=== PATIENT | female | born 1940 | race African-American/Black ===

== ENCOUNTER 2020-06-19 10:49 | Inpatient (IN) | payer MEDICARE, OTHER ==
[~2020-06-19] VITALS: Ht 160 cm; Wt 54.9 kg
[2020-06-19 12:30] LABS: BASOPHILS % 0.4 % (0.0-2.0); EOSINOPHILS % 0.8 % (0.0-5.0); HEMATOCRIT. 38.7 % (36.0-48.0); HEMOGLOBIN. 12.3 g/dL (12.0-16.0); LYMPHOCYTES % 19.3 % (20.0-50.0); MEAN CORPUSCULAR HEMOGLOBIN 32.4 pg (28.0-32.0); MEAN CORPUSCULAR VOLUME 101.8 fL (81.0-99.0); MEAN PLATELET VOLUME 9.1 fl (7.4-10.4); MONOCYTES % 3.7 % (2.0-8.0); NEUTROPHILS % 75.8 % (40.0-76.0); PLATELET 269 x1000/uL (130-400); RED CELL DISTRIBUTION WIDTH 16.9 % (11.6-14.6)
[2020-06-19 12:43] LABS: CHLORIDE 136 mEq/L (98-107)
[2020-06-19 12:50] LABS: ETHANOL BLOOD < 10 mg/dL
[2020-06-19] MEDS ORDERED: NICARDIPINE 100 MG in SODIUM CHLORIDE 0.9% 60 ML IV PRN (14:00)
[2020-06-19] MEDS ORDERED: MORPHINE SULFATE 2 MG/ML CPJ (NOT FOR IM USE) IV PRN (14:00)
[2020-06-19] MEDS ORDERED: SODIUM CHLORIDE 0.9% 1,000 ML IV ONE (15:00)
[2020-06-19] MEDS ORDERED: POTASSIUM CHLORIDE INJ 40 MEQ in DEXT 5% WATER 500 ML IV NR (15:00)
[2020-06-19 15:35] LABS: PROTHROMBIN TIME 10.7 sec (9.6-11.0)
[2020-06-19] MEDS: DEXAMETHASONE 4MG/ML 1ML VIAL IV SCH ×2 (16:15→22:14)
[2020-06-19 16:43] LABS: CLARITY URINE CLEAR (CLEAR); COLOR URINE YELLOW (YELLOW); KETONES URINE NEGATIVE (NEGATIVE); LEUKOCYTE ESTERASE URINE NEGATIVE (NEGATIVE); NITRITE URINE NEGATIVE (NEGATIVE); OCCULT BLOOD URINE NEGATIVE (NEGATIVE); PROTEIN URINE TRACE (NEGATIVE); SPECIFIC GRAVITY URINE 1.017 (1.005-1.030)
[2020-06-19 17:15] LABS: *AMPHETAMINES SCREEN URINE NEGATIVE (NEGATIVE); *BARBITURATES SCREEN URINE NEGATIVE (NEGATIVE); *BENZODIAZEPINES SCREEN URINE NEGATIVE (NEGATIVE); *COCAINE SCREEN URINE NEGATIVE (NEGATIVE); METHADONE URINE SCREEN NEGATIVE (NEGATIVE); OPIATES URINE SCREEN NEGATIVE (NEGATIVE)
[2020-06-19 17:16] LABS: CANNABINOID URINE SCREEN NEGATIVE (NEGATIVE); PHENCYCLIDINE URINE SCREEN NEGATIVE (NEGATIVE)
[2020-06-19] MEDS ORDERED: ONDANSETRON HCL 4MG/2ML INJ IV PRN (19:00)
[2020-06-19] MEDS ORDERED: DEXTROSE 5% WATER 1,000 ML IV SCH (19:00)
[2020-06-19] MEDS ORDERED: CEFTRIAXONE 1 G PREMIX 50 ML IV SCH (19:00)
[2020-06-19] MEDS ORDERED: ACETAMINOPHEN 650MG SUPP PR PRN (19:00)
[2020-06-19] MEDS: DEXT 5%/LACTATED RINGERS 1,000 ML IV SCH (19:13)
[2020-06-19] MEDS ORDERED: LEVETIRACETAM 500MG PREMIX 100 ML IV SCH (21:00)
[2020-06-20] VITALS (73 sets, daily range): BP systolic 61–163; BP diastolic 21–143
[2020-06-20] MEDS: DEXT 5%/LACTATED RINGERS 1,000 ML IV SCH ×2 (01:07→23:13)
[2020-06-20] MEDS: DEXAMETHASONE 4MG/ML 1ML VIAL IV SCH ×3 (05:29→21:07)
[2020-06-20 05:32] LABS: HEMATOCRIT. 35.9 % (36.0-48.0); HEMOGLOBIN. 11.6 g/dL (12.0-16.0); MEAN CORPUSCULAR HEMOGLOBIN 32.6 pg (28.0-32.0); MEAN CORPUSCULAR VOLUME 100.9 fL (81.0-99.0); MEAN PLATELET VOLUME 9.4 fl (7.4-10.4); PLATELET 240 x1000/uL (130-400); RED BLOOD CELL COUNT 3.56 mill/uL (4.2-5.4); RED CELL DISTRIBUTION WIDTH 16.7 % (11.6-14.6)
[2020-06-20 05:41] LABS: CHLORIDE 135 mEq/L (98-107)
[2020-06-20 05:51] LABS: CREATINE KINASE 534 IU/L (26-192)
[2020-06-20 05:54] LABS: CREATINE KINASE MB FRACTION 5.7 ng/mL (0.5-3.6)
[2020-06-20] MEDS: FAMOTIDINE 20MG/2ML VIAL IV SCH (09:57)
[2020-06-20] MEDS ORDERED: LORAZEPAM 2MG/ML CPJ IV NR (10:00)
[2020-06-20] MEDS: LEVETIRACETAM 500MG PREMIX 100 ML IV SCH ×2 (11:16→20:34)
[2020-06-20 11:58] LABS: PLATELET ESTIMATE NORMAL
[2020-06-20] MEDS ORDERED: ENALAPRIL 2.5MG/2ML VIAL 2ML IV PRN (16:15)
[2020-06-20] MEDS: CEFTRIAXONE 1,000 MG in DEXTROSE 5% WATER 50 ML IV SCH (17:27)
[2020-06-21] VITALS (66 sets, daily range): BP systolic 78–176; BP diastolic 29–111
[2020-06-21] MEDS: NICARDIPINE 100 MG in SODIUM CHLORIDE 0.9% 60 ML IV PRN ×2 (02:10→02:24)
[2020-06-21] MEDS ORDERED: NICARDIPINE 100 MG in SODIUM CHLORIDE 0.9% 60 ML IV PRN (02:45)
[2020-06-21] MEDS: DEXAMETHASONE 4MG/ML 1ML VIAL IV SCH ×2 (05:01→14:00)
[2020-06-21 05:30] LABS: INR 1.1; PARTIAL THROMBOPLASTIN TIME 29.6 sec (23.4-31.0); PROTHROMBIN TIME 11.1 sec (9.6-11.0)
[2020-06-21 05:32] LABS: HEMATOCRIT. 34.9 % (36.0-48.0); HEMOGLOBIN. 11.4 g/dL (12.0-16.0); MEAN CORPUSCULAR HEMOGLOBIN 32.6 pg (28.0-32.0); MEAN CORPUSCULAR VOLUME 99.9 fL (81.0-99.0); MEAN PLATELET VOLUME 9.3 fl (7.4-10.4); PLATELET 233 x1000/uL (130-400); RED CELL DISTRIBUTION WIDTH 16.8 % (11.6-14.6)
[2020-06-21] MEDS ORDERED: LIDOCAINE HCL 1% 20ML VIAL (Pyxis) INJ ONE (07:00)
[2020-06-21] MEDS: FAMOTIDINE 20MG/2ML VIAL IV SCH (08:43)
[2020-06-21] MEDS: LEVETIRACETAM 500MG PREMIX 100 ML IV SCH ×2 (08:43→20:44)
[2020-06-21 09:49] LABS: PLATELET ESTIMATE NORMAL
[2020-06-21] MEDS ORDERED: KCL 20MEQ/100ML PREMIX 100 ML IV SCH (10:00)
[2020-06-21] MEDS ORDERED: THROMBIN (BOVINE) 5000 UNITS/VIAL TOP ONE ×2 (12:07→12:08)
[2020-06-21] MEDS ORDERED: SODIUM CHLORIDE 0.9% INJ 10ML FLUSH IVF ONE (12:07)
[2020-06-21] MEDS ORDERED: LIDOCAINE HCL/EPINEPHRINE 1%-EPI 1:100,000 20 ML VIAL ONE (12:07)
[2020-06-21] MEDS ORDERED: BACITRACIN 50,000 UNITS/VIAL ONE (12:08)
[2020-06-21] MEDS: DEXT 5%/LACTATED RINGERS 1,000 ML IV SCH (12:29)
[2020-06-21] MEDS ORDERED: NEOSTIGMINE METHYLSULFATE 1MG/ML 10 ML VIAL ONE (13:14)
[2020-06-21] MEDS ORDERED: MIDAZOLAM HCL 2 MG/2 ML VIAL ONE (13:14)
[2020-06-21] MEDS ORDERED: PROPOFOL 200MG/20ML VIAL IV ONE (13:14)
[2020-06-21] MEDS ORDERED: ROCURONIUM BROMIDE 10MG/ML VIAL 5ML IV ONE (13:14)
[2020-06-21] MEDS ORDERED: FENTANYL CITRATE/PF 50MCG/ML 2ML VIAL ONE (13:14)
[2020-06-21] MEDS ORDERED: SUCCINYLCHOLINE CHLORIDE 200MG/10ML IV ONE (13:15)
[2020-06-21] MEDS ORDERED: SODIUM CHLORIDE 0.9% 10ML VIAL ONE (13:15)
[2020-06-21] MEDS ORDERED: ONDANSETRON HCL 4MG/2ML INJ ONE (13:15)
[2020-06-21] MEDS ORDERED: GLYCOPYRROLATE 0.2 MG/ML 2ML VIAL ONE (13:15)
[2020-06-21] MEDS ORDERED: METOCLOPRAMIDE HCL 10MG/2ML VIAL ONE (13:15)
[2020-06-21] MEDS ORDERED: CEFAZOLIN SODIUM 1000MG/VIAL ONE (13:15)
[2020-06-21] MEDS ORDERED: EPHEDRINE SULFATE 50MG/ML VIAL ONE (13:15)
[2020-06-21] MEDS ORDERED: PHENYLEPHRINE HCL 10 MG/ML 1ML (IV VIAL) IV ONE (13:15)
[2020-06-21] MEDS ORDERED: CEFAZOLIN SODIUM 1000MG/VIAL IV SCH (14:00)
[2020-06-21] MEDS ORDERED: LABETALOL HCL 5MG/ML VIAL 20ML IV ONE (14:18)
[2020-06-21] MEDS: CEFTRIAXONE 1,000 MG in DEXTROSE 5% WATER 50 ML IV SCH (17:51)
[2020-06-21] MEDS: CEFAZOLIN 1000MG PREMIX 50 ML IV SCH (21:39)
[2020-06-22] VITALS (100 sets, daily range): BP systolic 100–147; BP diastolic 49–100
[2020-06-22] MEDS: MORPHINE SULFATE 2 MG/ML CPJ (NOT FOR IM USE) IV PRN ×2 (00:45→05:10)
[2020-06-22] MEDS: DEXT 5%/LACTATED RINGERS 1,000 ML IV SCH ×2 (03:06→18:03)
[2020-06-22] MEDS: CEFAZOLIN 1000MG PREMIX 50 ML IV SCH ×3 (05:45→22:09)
[2020-06-22 06:45] LABS: BASOPHILS % 0.1 % (0.0-2.0); EOSINOPHILS % 0.2 % (0.0-5.0); HEMATOCRIT. 34.8 % (36.0-48.0); HEMOGLOBIN. 11.4 g/dL (12.0-16.0); MEAN CORPUSCULAR HEMOGLOBIN 32.4 pg (28.0-32.0); MEAN CORPUSCULAR VOLUME 98.5 fL (81.0-99.0); MEAN PLATELET VOLUME 9.7 fl (7.4-10.4); MONOCYTES % 4.5 % (2.0-8.0); NEUTROPHILS % 85.2 % (40.0-76.0); PLATELET 242 x1000/uL (130-400); RED BLOOD CELL COUNT 3.53 mill/uL (4.2-5.4); RED CELL DISTRIBUTION WIDTH 16.8 % (11.6-14.6)
[2020-06-22] MEDS ORDERED: KCL 20MEQ/100ML PREMIX 100 ML IV ONE ×3 (07:00→12:00)
[2020-06-22] MEDS ORDERED: POTASSIUM CHLORIDE INJ 60 MEQ in DEXT 5% WATER 500 ML IV NR (08:00)
[2020-06-22] MEDS: FAMOTIDINE 20MG/2ML VIAL IV SCH (08:05)
[2020-06-22] MEDS: LEVETIRACETAM 500MG PREMIX 100 ML IV SCH ×2 (08:05→20:44)
[2020-06-22] MEDS: IPRATROPIUM/ALBUTEROL 0.5-3(2.5)MG/3ML NEB NEB PRN (08:50)
[2020-06-22 09:07] LABS: BG BASE EXCESS 0.6 mmol/L (-2.0-2.0); BG CARBOXYHEMOGLOBIN 0.3 % (0.5-1.5); BG FRACTION INSPIRED OXYGEN 40; BG HCO3 ACT 22.7 mmol/L (22.0-26.0); BG METHEMOGLOBIN 0.3 % (0.0-1.5); BG OXYHEMOGLOBIN 98.4 % (94.0-97.0); BG PCO2 29.2 mmHg (35.0-45.0); BG PH 7.509 (7.350-7.450); BG PO2 150.6 mmHg (75.0-100.0); BG SAMPLE SITE LEFT RADIAL; BG TOTAL HEMOGLOBIN 12.4 g/dL (12.0-18.0); BG VENT MODE VENT - AC
[2020-06-22 11:56] LABS: T4 FREE 1.29 ng/dL (0.76-1.46)
[2020-06-22 14:50] LABS: BG BASE EXCESS 0.5 mmol/L (-2.0-2.0); BG CARBOXYHEMOGLOBIN 0.3 % (0.5-1.5); BG DEOXYHEMOGLOBIN 1.5 % (0.0-5.0); BG FRACTION INSPIRED OXYGEN 40; BG HCO3 ACT 23.4 mmol/L (22.0-26.0); BG METHEMOGLOBIN 0.4 % (0.0-1.5); BG OXYGEN SATURATION 98.5 % (92.0-98.5); BG OXYHEMOGLOBIN 97.8 % (94.0-97.0); BG PCO2 32.2 mmHg (35.0-45.0); BG PO2 137.3 mmHg (75.0-100.0); BG SAMPLE SITE LEFT RADIAL; BG TOTAL HEMOGLOBIN 12.2 g/dL (12.0-18.0); BG VENT MODE VENT - AC
[2020-06-22] MEDS: NICARDIPINE 100 MG in SODIUM CHLORIDE 0.9% 60 ML IV PRN (18:03)
[2020-06-22] MEDS: CEFTRIAXONE 1,000 MG in DEXTROSE 5% WATER 50 ML IV SCH (18:04)
[2020-06-22] MEDS ORDERED: KCL 20MEQ/100ML PREMIX 100 ML IV NR (23:30)
[2020-06-23] VITALS (99 sets, daily range): BP systolic 74–152; BP diastolic 33–111
[2020-06-23] MEDS ORDERED: POTASSIUM CHLORIDE INJ 40 MEQ in DEXT 5% WATER 250 ML IV NR ×2
[2020-06-23] MEDS: DEXT 5%/LACTATED RINGERS 1,000 ML IV SCH ×2 (06:01→18:37)
[2020-06-23] MEDS: CEFAZOLIN 1000MG PREMIX 50 ML IV SCH ×3 (06:03→21:36)
[2020-06-23 06:08] LABS: HEMATOCRIT 37.1 % (36.0-48.0); HEMOGLOBIN 12.2 g/dL (12.0-16.0); MEAN CORPUSCULAR HEMOGLOBIN 32.8 pg (28.0-32.0); MEAN CORPUSCULAR VOLUME 99.8 fL (81.0-99.0); PLATELET 203 x1000/uL (130-400); RED BLOOD CELL COUNT 3.72 mill/uL (4.2-5.4); RED CELL DISTRIBUTION WIDTH 16.8 % (11.6-14.6)
[2020-06-23] MEDS: IPRATROPIUM/ALBUTEROL 0.5-3(2.5)MG/3ML NEB NEB PRN ×2 (07:48→15:27)
[2020-06-23 09:09] LABS: BG BASE EXCESS 0.4 mmol/L (-2.0-2.0); BG CARBOXYHEMOGLOBIN 0.3 % (0.5-1.5); BG DEOXYHEMOGLOBIN 0.9 % (0.0-5.0); BG FRACTION INSPIRED OXYGEN 40; BG HCO3 ACT 22.5 mmol/L (22.0-26.0); BG OXYGEN SATURATION 99.1 % (92.0-98.5); BG OXYHEMOGLOBIN 98.8 % (94.0-97.0); BG PCO2 29.5 mmHg (35.0-45.0); BG PO2 181.8 mmHg (75.0-100.0); BG SAMPLE SITE LEFT RADIAL; BG VENT MODE VENT - AC
[2020-06-23] MEDS: LEVETIRACETAM 500MG PREMIX 100 ML IV SCH ×2 (09:58→20:18)
[2020-06-23] MEDS: FAMOTIDINE 20MG/2ML VIAL IV SCH (09:58)
[2020-06-23] MEDS ORDERED: BACITRACIN 50,000 UNITS/VIAL ONE (10:18)
[2020-06-23] MEDS ORDERED: SODIUM CHLORIDE 0.9% INJ 10ML FLUSH IVF ONE (10:18)
[2020-06-23] MEDS ORDERED: LIDOCAINE HCL/EPINEPHRINE 1%-EPI 1:100,000 20 ML VIAL ONE (10:18)
[2020-06-23] MEDS ORDERED: BACITRACIN 15GM TUBE TOP ONE (10:18)
[2020-06-23] MEDS ORDERED: THROMBIN (BOVINE) 5000 UNITS/VIAL TOP ONE (10:18)
[2020-06-23] MEDS ORDERED: LACTATED RINGERS 3,000 ML IV ONE (10:19)
[2020-06-23] MEDS ORDERED: ROCURONIUM BROMIDE 10MG/ML VIAL 5ML IV ONE (10:59)
[2020-06-23] MEDS ORDERED: MIDAZOLAM HCL 2 MG/2 ML VIAL ONE (11:00)
[2020-06-23] MEDS: CEFTRIAXONE 1,000 MG in DEXTROSE 5% WATER 50 ML IV SCH (18:36)
[2020-06-24] VITALS (97 sets, daily range): BP systolic 100–159; BP diastolic 35–110
[2020-06-24 05:02] LABS: BASOPHILS % 0.2 % (0.0-2.0); EOSINOPHILS % 1.1 % (0.0-5.0); HEMATOCRIT. 34.1 % (36.0-48.0); HEMOGLOBIN. 11.5 g/dL (12.0-16.0); LYMPHOCYTES % 15.9 % (20.0-50.0); MEAN CORPUSCULAR VOLUME 98.1 fL (81.0-99.0); MEAN PLATELET VOLUME 9.4 fl (7.4-10.4); MONOCYTES % 4.2 % (2.0-8.0); NEUTROPHILS % 78.6 % (40.0-76.0); PLATELET 178 x1000/uL (130-400); RED BLOOD CELL COUNT 3.47 mill/uL (4.2-5.4); RED CELL DISTRIBUTION WIDTH 16.5 % (11.6-14.6)
[2020-06-24] MEDS: MORPHINE SULFATE 2 MG/ML CPJ (NOT FOR IM USE) IV PRN (05:04)
[2020-06-24 05:09] LABS: CHLORIDE 117 mEq/L (98-107)
[2020-06-24] MEDS: LEVETIRACETAM 500MG PREMIX 100 ML IV SCH ×2 (08:26→21:05)
[2020-06-24] MEDS: DEXT 5%/LACTATED RINGERS 1,000 ML IV SCH ×2 (08:27→21:24)
[2020-06-24] MEDS: CEFAZOLIN 1000MG PREMIX 50 ML IV SCH (08:41)
[2020-06-24] MEDS: FAMOTIDINE 20MG/2ML VIAL IV SCH (08:41)
[2020-06-24] MEDS ORDERED: KCL 20MEQ/100ML PREMIX 100 ML IV SCH (09:00)
[2020-06-24] MEDS: IPRATROPIUM/ALBUTEROL 0.5-3(2.5)MG/3ML NEB NEB PRN (12:30)
[2020-06-24] MEDS ORDERED: POTASSIUM CHLORIDE INJ 40 MEQ in DEXT 5% WATER 250 ML IV NR (13:00)
[2020-06-24] MEDS: NICARDIPINE 100 MG in SODIUM CHLORIDE 0.9% 60 ML IV PRN (13:23)
[2020-06-24] MEDS: CEFTRIAXONE 1,000 MG in DEXTROSE 5% WATER 50 ML IV SCH (17:25)
[2020-06-24] MEDS ORDERED: MAGNESIUM 2 G PREMIX 50 ML IV SCH (22:00)
[2020-06-25] VITALS (103 sets, daily range): BP systolic 82–152; BP diastolic 31–90
[2020-06-25] MEDS: NICARDIPINE 100 MG in SODIUM CHLORIDE 0.9% 60 ML IV PRN (07:55)
[2020-06-25] MEDS: DEXT 5%/LACTATED RINGERS 1,000 ML IV SCH (09:23)
[2020-06-25] MEDS: FAMOTIDINE 20MG/2ML VIAL IV SCH (09:23)
[2020-06-25] MEDS: LEVETIRACETAM 500MG PREMIX 100 ML IV SCH ×2 (09:23→20:42)
[2020-06-25 11:39] LABS: HEMATOCRIT 32.6 % (36.0-48.0); HEMOGLOBIN 10.7 g/dL (12.0-16.0); MEAN CORPUSCULAR HEMOGLOBIN 32.1 pg (28.0-32.0); MEAN CORPUSCULAR VOLUME 97.8 fL (81.0-99.0); PLATELET 176 x1000/uL (130-400); RED BLOOD CELL COUNT 3.34 mill/uL (4.2-5.4); RED CELL DISTRIBUTION WIDTH 16.1 % (11.6-14.6)
[2020-06-25 11:47] LABS: CHLORIDE 113 mEq/L (98-107)
[2020-06-25] MEDS ORDERED: POTASSIUM CHLORIDE 20MEQ TABLET SR PO NR (14:30)
[2020-06-25] MEDS: AMLODIPINE 5MG TABLET PO SCH (14:54)
[2020-06-25] MEDS: HYDRALAZINE HCL 50MG TABLET PO SCH (21:08)
[2020-06-26] VITALS (105 sets, daily range): BP systolic 93–157; BP diastolic 44–111
[2020-06-26] MEDS: DEXT 5%/LACTATED RINGERS 1,000 ML IV SCH ×2 (00:03→14:05)
[2020-06-26] MEDS: NICARDIPINE 100 MG in SODIUM CHLORIDE 0.9% 60 ML IV PRN ×3 (02:36→19:17)
[2020-06-26 05:28] LABS: HEMATOCRIT 34.6 % (36.0-48.0); HEMOGLOBIN 11.2 g/dL (12.0-16.0); MEAN CORPUSCULAR HEMOGLOBIN 32.1 pg (28.0-32.0); PLATELET 177 x1000/uL (130-400); RED CELL DISTRIBUTION WIDTH 16.7 % (11.6-14.6)
[2020-06-26] MEDS: HYDRALAZINE HCL 50MG TABLET PO SCH (05:34)
[2020-06-26 05:47] LABS: CHLORIDE 110 mEq/L (98-107)
[2020-06-26] MEDS: MORPHINE SULFATE 2 MG/ML CPJ (NOT FOR IM USE) IV PRN ×2 (08:09→17:47)
[2020-06-26] MEDS: FAMOTIDINE 20MG/2ML VIAL IV SCH (08:34)
[2020-06-26] MEDS: AMLODIPINE 5MG TABLET PO SCH (08:36)
[2020-06-26] MEDS: LEVETIRACETAM 500MG PREMIX 100 ML IV SCH ×2 (08:38→21:12)
[2020-06-26] MEDS ORDERED: CEFAZOLIN SODIUM 1000MG/VIAL IV SCH (10:00)
[2020-06-26] MEDS: CEFAZOLIN 1000MG PREMIX 50 ML IV SCH ×2 (10:54→17:14)
[2020-06-26] MEDS ORDERED: HYDRALAZINE HCL 100MG TABLET PO SCH (13:30)
[2020-06-26] MEDS ORDERED: METOPROLOL TARTRATE 25MG TABLET PO ONE (13:45)
[2020-06-26] MEDS: HYDRALAZINE HCL 100MG TABLET PO SCH ×2 (13:46→21:13)
[2020-06-26] MEDS ORDERED: HYDRALAZINE HCL 50MG TABLET PO SCH (14:00)
[2020-06-26 16:52] LABS: BG CARBOXYHEMOGLOBIN 0.3 % (0.5-1.5); BG DEOXYHEMOGLOBIN 6.7 % (0.0-5.0); BG FRACTION INSPIRED OXYGEN 30; BG HCO3 ACT 25.3 mmol/L (22.0-26.0); BG METHEMOGLOBIN 0.2 % (0.0-1.5); BG OXYGEN SATURATION 93.3 % (92.0-98.5); BG OXYHEMOGLOBIN 92.8 % (94.0-97.0); BG PCO2 34.3 mmHg (35.0-45.0); BG PH 7.485 (7.350-7.450); BG PO2 63.5 mmHg (75.0-100.0); BG SAMPLE SITE LEFT RADIAL; BG TOTAL HEMOGLOBIN 10.4 g/dL (12.0-18.0); BG TOTAL RESPIRATORY RATE 14 b/min; BG VENT MODE VENT - CPAP
[2020-06-26] MEDS: METOPROLOL TARTRATE 25MG TABLET PO SCH (21:13)
[2020-06-27] VITALS (102 sets, daily range): BP systolic 98–155; BP diastolic 47–140
[2020-06-27] MEDS: CEFAZOLIN 1000MG PREMIX 50 ML IV SCH ×3 (01:30→17:14)
[2020-06-27] MEDS: DEXT 5%/LACTATED RINGERS 1,000 ML IV SCH ×2 (03:32→17:14)
[2020-06-27 05:36] LABS: HEMATOCRIT 29.4 % (36.0-48.0); HEMOGLOBIN 9.7 g/dL (12.0-16.0); MEAN CORPUSCULAR HEMOGLOBIN 32.6 pg (28.0-32.0); MEAN CORPUSCULAR VOLUME 98.4 fL (81.0-99.0); PLATELET 191 x1000/uL (130-400); RED BLOOD CELL COUNT 2.99 mill/uL (4.2-5.4)
[2020-06-27 05:49] LABS: CHLORIDE 109 mEq/L (98-107)
[2020-06-27] MEDS: HYDRALAZINE HCL 100MG TABLET PO SCH ×3 (06:17→22:00)
[2020-06-27] MEDS: LEVETIRACETAM 500MG PREMIX 100 ML IV SCH ×2 (08:23→21:26)
[2020-06-27] MEDS: FAMOTIDINE 20MG/2ML VIAL IV SCH (08:23)
[2020-06-27] MEDS: METOPROLOL TARTRATE 25MG TABLET PO SCH (08:25)
[2020-06-27] MEDS: AMLODIPINE 5MG TABLET PO SCH (10:08)
[2020-06-27] MEDS ORDERED: POTASSIUM CHLORIDE INJ 40 MEQ in DEXT 5% WATER 250 ML IV NR (11:15)
[2020-06-27] MEDS ORDERED: BISACODYL 10MG SUPP PR PRN (11:15)
[2020-06-27] MEDS: METOCLOPRAMIDE HCL 10MG/2ML VIAL IV SCH ×2 (11:52→17:14)
[2020-06-27] MEDS: MORPHINE SULFATE 2 MG/ML CPJ (NOT FOR IM USE) IV PRN (17:14)
[2020-06-27] MEDS: NICARDIPINE 100 MG in SODIUM CHLORIDE 0.9% 60 ML IV PRN (17:23)
[2020-06-27] MEDS: METOPROLOL TARTRATE 50MG TABLET PO SCH (21:26)
[2020-06-28] VITALS (107 sets, daily range): BP systolic 66–164; BP diastolic 43–127
[2020-06-28] MEDS: METOCLOPRAMIDE HCL 10MG/2ML VIAL IV SCH ×5 (00:58→23:15)
[2020-06-28] MEDS: CEFAZOLIN 1000MG PREMIX 50 ML IV SCH ×2 (02:01→09:10)
[2020-06-28 05:46] LABS: HEMOGLOBIN. 9.1 g/dL (12.0-16.0); MEAN CORPUSCULAR HEMOGLOBIN 32.8 pg (28.0-32.0); MEAN CORPUSCULAR VOLUME 97.4 fL (81.0-99.0); MEAN PLATELET VOLUME 8.4 fl (7.4-10.4); PLATELET 223 x1000/uL (130-400); RED BLOOD CELL COUNT 2.78 mill/uL (4.2-5.4); RED CELL DISTRIBUTION WIDTH 16.4 % (11.6-14.6)
[2020-06-28 05:57] LABS: CHLORIDE 110 mEq/L (98-107)
[2020-06-28] MEDS: HYDRALAZINE HCL 100MG TABLET PO SCH ×3 (06:24→21:31)
[2020-06-28] MEDS: DEXT 5%/LACTATED RINGERS 1,000 ML IV SCH ×2 (06:26→18:51)
[2020-06-28] MEDS: FAMOTIDINE 20MG/2ML VIAL IV SCH (08:18)
[2020-06-28] MEDS: AMLODIPINE 5MG TABLET PO SCH ×2 (08:19→16:19)
[2020-06-28] MEDS: METOPROLOL TARTRATE 50MG TABLET PO SCH ×2 (08:19→20:25)
[2020-06-28] MEDS: LEVETIRACETAM 500MG PREMIX 100 ML IV SCH ×2 (09:07→20:25)
[2020-06-28 10:27] LABS: PLATELET ESTIMATE NORMAL
[2020-06-28] MEDS: LOSARTAN POTASSIUM 50 MG TABLET PO SCH (10:30)
[2020-06-28] MEDS: NICARDIPINE 100 MG in SODIUM CHLORIDE 0.9% 60 ML IV PRN (20:28)
[2020-06-28] MEDS ORDERED: METHYLPREDNISOLONE SOD SUCC 125 MG/2 ML VIAL IV NR (22:30)
[2020-06-28] MEDS: RACEPINEPHRINE 2.25% 0.5ML NEB VIAL HHN PRN (22:32)
[2020-06-28] MEDS: MORPHINE SULFATE 2 MG/ML CPJ (NOT FOR IM USE) IV PRN (23:35)
[2020-06-28 23:58] LABS: BG BASE EXCESS 2.1 mmol/L (-2.0-2.0); BG CARBOXYHEMOGLOBIN 0.3 % (0.5-1.5); BG DEOXYHEMOGLOBIN 5.6 % (0.0-5.0); BG FRACTION INSPIRED OXYGEN 40; BG OXYGEN SATURATION 94.4 % (92.0-98.5); BG OXYHEMOGLOBIN 94.1 % (94.0-97.0); BG PCO2 37.2 mmHg (35.0-45.0); BG PH 7.462 (7.350-7.450); BG PO2 70.1 mmHg (75.0-100.0); BG SAMPLE SITE LEFT RADIAL; BG VENT MODE COOL AEROSOL
[2020-06-29] VITALS (79 sets, daily range): BP systolic 102–157; BP diastolic 35–104
[2020-06-29] MEDS: RACEPINEPHRINE 2.25% 0.5ML NEB VIAL HHN PRN ×2 (00:10→04:19)
[2020-06-29] MEDS: METOCLOPRAMIDE HCL 10MG/2ML VIAL IV SCH ×4 (05:02→22:53)
[2020-06-29] MEDS: HYDRALAZINE HCL 100MG TABLET PO SCH ×3 (05:02→22:46)
[2020-06-29 05:44] LABS: HEMATOCRIT. 27.5 % (36.0-48.0); HEMOGLOBIN. 9.1 g/dL (12.0-16.0); MEAN CORPUSCULAR HEMOGLOBIN 32.2 pg (28.0-32.0); MEAN CORPUSCULAR VOLUME 97.7 fL (81.0-99.0); MEAN PLATELET VOLUME 8.4 fl (7.4-10.4); PLATELET 242 x1000/uL (130-400); RED BLOOD CELL COUNT 2.82 mill/uL (4.2-5.4)
[2020-06-29 05:47] LABS: CHLORIDE 105 mEq/L (98-107)
[2020-06-29] MEDS: NICARDIPINE 100 MG in SODIUM CHLORIDE 0.9% 60 ML IV PRN (07:43)
[2020-06-29] MEDS: DEXT 5%/LACTATED RINGERS 1,000 ML IV SCH (07:48)
[2020-06-29] MEDS: LOSARTAN POTASSIUM 50 MG TABLET PO SCH (09:44)
[2020-06-29] MEDS: AMLODIPINE 5MG TABLET PO SCH ×2 (09:44→17:39)
[2020-06-29] MEDS: FAMOTIDINE 20MG/2ML VIAL IV SCH (09:44)
[2020-06-29] MEDS: METOPROLOL TARTRATE 50MG TABLET PO SCH ×2 (09:44→21:33)
[2020-06-29] MEDS: LEVETIRACETAM 500MG PREMIX 100 ML IV SCH ×2 (09:45→21:33)
[2020-06-29 14:22] LABS: PLATELET ESTIMATE NORMAL
[2020-06-29] MEDS ORDERED: DEXTROSE 50% WATER 50ML SYRINGE IV PRN (14:45)
[2020-06-29] MEDS ORDERED: LOSARTAN POTASSIUM 50 MG TABLET PO SCH (15:00)
[2020-06-29] MEDS: BLOOD SUGAR DIAGNOSTIC STRIP TEST SCH ×2 (16:30→21:34)
[2020-06-29] MEDS: NITROGLYCERIN OINT 1GM/INCH UDPKT TD SCH ×2 (17:38→21:33)
[2020-06-29] MEDS: INSULIN LISPRO 100 UNITS/ML SUBCUT SCH ×2 (17:40→21:50)
[2020-06-29] MEDS ORDERED: RACEPINEPHRINE 2.25% 0.5ML NEB VIAL HHN PRN (21:00)
[2020-06-30] VITALS (12 sets, daily range): BP systolic 109–137; BP diastolic 55–72
[2020-06-30] MEDS: METOCLOPRAMIDE HCL 10MG/2ML VIAL IV SCH ×3 (05:07→17:36)
[2020-06-30] MEDS: HYDRALAZINE HCL 100MG TABLET PO SCH ×3 (05:07→21:57)
[2020-06-30] MEDS: NITROGLYCERIN OINT 1GM/INCH UDPKT TD SCH ×3 (05:07→21:58)
[2020-06-30] MEDS: BLOOD SUGAR DIAGNOSTIC STRIP TEST SCH ×4 (06:37→20:37)
[2020-06-30] MEDS: INSULIN LISPRO 100 UNITS/ML SUBCUT SCH ×4 (07:38→22:03)
[2020-06-30] MEDS: LEVETIRACETAM 500MG PREMIX 100 ML IV SCH ×2 (08:54→21:55)
[2020-06-30] MEDS: AMLODIPINE 5MG TABLET PO SCH ×2 (08:55→17:37)
[2020-06-30] MEDS: FAMOTIDINE 20MG/2ML VIAL IV SCH (08:55)
[2020-06-30] MEDS: LOSARTAN POTASSIUM 100 MG TABLET PO SCH (08:55)
[2020-06-30] MEDS: METOPROLOL TARTRATE 50MG TABLET PO SCH ×2 (08:56→21:00)
[2020-06-30 09:40] LABS: CHLORIDE 109 mEq/L (98-107)
[2020-06-30 11:21] LABS: HEMATOCRIT 30.1 % (36.0-48.0); HEMOGLOBIN 9.8 g/dL (12.0-16.0); MEAN CORPUSCULAR VOLUME 98.3 fL (81.0-99.0); PLATELET 288 x1000/uL (130-400); RED BLOOD CELL COUNT 3.07 mill/uL (4.2-5.4); RED CELL DISTRIBUTION WIDTH 16.6 % (11.6-14.6)
[2020-06-30] MEDS ORDERED: PIPERACILLIN/TAZOBACTAM 3.375 G in DEXT 5% WATER 100 ML IV SCH (12:00)
[2020-06-30] MEDS: PIPERACILLIN/TAZOBACTAM 2.25 G in DEXTROSE 5% WATER 50 ML IV SCH ×2 (14:09→19:59)
[2020-06-30] MEDS: IPRATROPIUM/ALBUTEROL 0.5-3(2.5)MG/3ML NEB HHN SCH ×2 (15:36→21:45)
[2020-06-30] MEDS: ACETYLCYSTEINE 100MG/ML 10% VIAL 4ML INH SCH (15:36)
[2020-07-01] VITALS (10 sets, daily range): BP systolic 100–155; BP diastolic 50–78
[2020-07-01] MEDS: METOCLOPRAMIDE HCL 10MG/2ML VIAL IV SCH ×5 (00:22→23:11)
[2020-07-01] MEDS: IPRATROPIUM/ALBUTEROL 0.5-3(2.5)MG/3ML NEB HHN SCH ×4 (02:04→19:56)
[2020-07-01] MEDS: ACETYLCYSTEINE 100MG/ML 10% VIAL 4ML INH SCH ×3 (02:05→08:03)
[2020-07-01] MEDS: PIPERACILLIN/TAZOBACTAM 2.25 G in DEXTROSE 5% WATER 50 ML IV SCH ×4 (02:49→20:05)
[2020-07-01] MEDS: HYDRALAZINE HCL 100MG TABLET PO SCH ×3 (05:33→21:05)
[2020-07-01] MEDS: NITROGLYCERIN OINT 1GM/INCH UDPKT TD SCH ×3 (05:34→21:05)
[2020-07-01] MEDS: BLOOD SUGAR DIAGNOSTIC STRIP TEST SCH ×4 (08:07→21:00)
[2020-07-01] MEDS: INSULIN LISPRO 100 UNITS/ML SUBCUT SCH ×4 (08:30→21:00)
[2020-07-01] MEDS: LOSARTAN POTASSIUM 100 MG TABLET PO SCH (09:00)
[2020-07-01] MEDS: METOPROLOL TARTRATE 50MG TABLET PO SCH ×2 (09:00→20:08)
[2020-07-01] MEDS: AMLODIPINE 5MG TABLET PO SCH ×2 (09:00→17:39)
[2020-07-01] MEDS: LEVETIRACETAM 500MG PREMIX 100 ML IV SCH ×2 (09:48→21:03)
[2020-07-01] MEDS: FAMOTIDINE 20MG/2ML VIAL IV SCH (09:50)
[2020-07-01] MEDS: PANTOPRAZOLE SODIUM 40 MG/VIAL IV SCH (20:05)
[2020-07-02] VITALS (7 sets, daily range): BP systolic 1–133; BP diastolic 50–56
[2020-07-02] MEDS: IPRATROPIUM/ALBUTEROL 0.5-3(2.5)MG/3ML NEB HHN SCH ×4 (02:27→20:31)
[2020-07-02] MEDS: PIPERACILLIN/TAZOBACTAM 2.25 G in DEXTROSE 5% WATER 50 ML IV SCH ×4 (02:41→21:30)
[2020-07-02] MEDS: HYDRALAZINE HCL 100MG TABLET PO SCH ×3 (05:46→21:45)
[2020-07-02] MEDS: NITROGLYCERIN OINT 1GM/INCH UDPKT TD SCH ×3 (05:47→21:46)
[2020-07-02] MEDS: METOCLOPRAMIDE HCL 10MG/2ML VIAL IV SCH ×3 (06:01→17:31)
[2020-07-02] MEDS: INSULIN LISPRO 100 UNITS/ML SUBCUT SCH ×4 (08:00→21:56)
[2020-07-02 08:16] LABS: HEMATOCRIT 29.6 % (36.0-48.0); HEMOGLOBIN 9.9 g/dL (12.0-16.0); MEAN CORPUSCULAR HEMOGLOBIN 32.8 pg (28.0-32.0); MEAN CORPUSCULAR VOLUME 98.2 fL (81.0-99.0); PLATELET 350 x1000/uL (130-400); RED BLOOD CELL COUNT 3.01 mill/uL (4.2-5.4); RED CELL DISTRIBUTION WIDTH 17.4 % (11.6-14.6)
[2020-07-02] MEDS: BLOOD SUGAR DIAGNOSTIC STRIP TEST SCH ×4 (08:25→21:45)
[2020-07-02 08:32] LABS: CHLORIDE 106 mEq/L (98-107)
[2020-07-02] MEDS: METOPROLOL TARTRATE 50MG TABLET PO SCH (09:00)
[2020-07-02] MEDS: LOSARTAN POTASSIUM 100 MG TABLET PO SCH (09:00)
[2020-07-02] MEDS: AMLODIPINE 5MG TABLET PO SCH ×2 (09:00→17:00)
[2020-07-02] MEDS: ACETYLCYSTEINE 100MG/ML 10% VIAL 4ML INH SCH ×2 (09:15→20:31)
[2020-07-02] MEDS: PANTOPRAZOLE SODIUM 40 MG/VIAL IV SCH ×2 (09:26→21:41)
[2020-07-02] MEDS: LEVETIRACETAM 500MG PREMIX 100 ML IV SCH ×2 (09:26→21:30)
[2020-07-02] MEDS: METOPROLOL TARTRATE 100MG TABLET PO SCH (21:45)
[2020-07-03] VITALS (10 sets, daily range): BP systolic 100–157; BP diastolic 44–85
[2020-07-03] MEDS: METOCLOPRAMIDE HCL 10MG/2ML VIAL IV SCH ×5 (00:09→23:42)
[2020-07-03] MEDS: IPRATROPIUM/ALBUTEROL 0.5-3(2.5)MG/3ML NEB HHN SCH ×4 (00:29→21:49)
[2020-07-03] MEDS: PIPERACILLIN/TAZOBACTAM 2.25 G in DEXTROSE 5% WATER 50 ML IV SCH ×4 (01:02→22:05)
[2020-07-03] MEDS: HYDRALAZINE HCL 100MG TABLET PO SCH ×4 (05:38→22:15)
[2020-07-03] MEDS: NITROGLYCERIN OINT 1GM/INCH UDPKT TD SCH ×3 (05:39→22:14)
[2020-07-03 07:26] LABS: PROTHROMBIN TIME 10.5 sec (9.6-11.0)
[2020-07-03 07:38] LABS: BASOPHILS % 0.5 % (0.0-2.0); EOSINOPHILS % 1.1 % (0.0-5.0); HEMATOCRIT. 28.1 % (36.0-48.0); HEMOGLOBIN. 9.2 g/dL (12.0-16.0); LYMPHOCYTES % 15.6 % (20.0-50.0); MEAN CORPUSCULAR HEMOGLOBIN 32.7 pg (28.0-32.0); MEAN CORPUSCULAR VOLUME 99.6 fL (81.0-99.0); MONOCYTES % 6.4 % (2.0-8.0); NEUTROPHILS % 76.4 % (40.0-76.0); PLATELET 212 x1000/uL (130-400); RED BLOOD CELL COUNT 2.82 mill/uL (4.2-5.4); RED CELL DISTRIBUTION WIDTH 16.8 % (11.6-14.6)
[2020-07-03] MEDS: INSULIN LISPRO 100 UNITS/ML SUBCUT SCH ×4 (08:00→20:33)
[2020-07-03 08:02] LABS: CHLORIDE 105 mEq/L (98-107)
[2020-07-03] MEDS: BLOOD SUGAR DIAGNOSTIC STRIP TEST SCH ×4 (08:17→20:33)
[2020-07-03] MEDS: LEVETIRACETAM 500MG PREMIX 100 ML IV SCH ×2 (08:28→22:05)
[2020-07-03] MEDS: PANTOPRAZOLE SODIUM 40 MG/VIAL IV SCH ×2 (08:28→20:55)
[2020-07-03] MEDS: LOSARTAN POTASSIUM 100 MG TABLET PO SCH (09:00)
[2020-07-03] MEDS: METOPROLOL TARTRATE 100MG TABLET PO SCH ×2 (09:00→20:56)
[2020-07-03] MEDS: AMLODIPINE 5MG TABLET PO SCH ×2 (09:00→16:59)
[2020-07-03] MEDS: ACETYLCYSTEINE 100MG/ML 10% VIAL 4ML INH SCH ×2 (09:10→15:11)
[2020-07-03] MEDS ORDERED: DILTIAZEM HCL 5MG/ML 5ML VIAL IV SCH (11:00)
[2020-07-03] MEDS ORDERED: DILTIAZEM HCL 5MG/ML 5ML VIAL IV PRN (11:45)
[2020-07-03] MEDS ORDERED: MIDAZOLAM HCL 5 MG/5 ML VIAL IV PRN (14:15)
[2020-07-03] MEDS ORDERED: MIDAZOLAM HCL 5 MG/5 ML VIAL ONE (14:15)
[2020-07-03] MEDS: DEXT 5%/0.45% NACL 1000ML 1,000 ML IV SCH (17:00)
[2020-07-04] VITALS: BP 148/76
[2020-07-04] MEDS: PIPERACILLIN/TAZOBACTAM 2.25 G in DEXTROSE 5% WATER 50 ML IV SCH ×4 (02:30→20:20)
[2020-07-04] MEDS: MORPHINE SULFATE 2 MG/ML CPJ (NOT FOR IM USE) IV PRN ×2 (02:39→09:07)
[2020-07-04] MEDS: IPRATROPIUM/ALBUTEROL 0.5-3(2.5)MG/3ML NEB HHN SCH ×4 (03:02→21:09)
[2020-07-04] MEDS: ACETYLCYSTEINE 100MG/ML 10% VIAL 4ML INH SCH ×3 (03:05→21:09)
[2020-07-04 04:00] VITALS: BP 137/60
[2020-07-04] MEDS: HYDRALAZINE HCL 100MG TABLET PO SCH ×3 (05:10→21:44)
[2020-07-04] MEDS: METOCLOPRAMIDE HCL 10MG/2ML VIAL IV SCH ×3 (05:10→18:56)
[2020-07-04] MEDS: NITROGLYCERIN OINT 1GM/INCH UDPKT TD SCH ×3 (05:10→22:00)
[2020-07-04] MEDS: BLOOD SUGAR DIAGNOSTIC STRIP TEST SCH ×4 (06:32→20:28)
[2020-07-04] MEDS: INSULIN LISPRO 100 UNITS/ML SUBCUT SCH ×4 (06:33→20:39)
[2020-07-04 08:00] VITALS: BP 121/59
[2020-07-04 08:56] LABS: HEMATOCRIT 27.4 % (36.0-48.0); HEMOGLOBIN 9.1 g/dL (12.0-16.0); MEAN CORPUSCULAR HEMOGLOBIN 32.7 pg (28.0-32.0); MEAN CORPUSCULAR VOLUME 98.7 fL (81.0-99.0); PLATELET 366 x1000/uL (130-400); RED BLOOD CELL COUNT 2.77 mill/uL (4.2-5.4); RED CELL DISTRIBUTION WIDTH 16.4 % (11.6-14.6)
[2020-07-04] MEDS: PANTOPRAZOLE SODIUM 40 MG/VIAL IV SCH ×2 (09:06→20:38)
[2020-07-04] MEDS: LEVETIRACETAM 500MG PREMIX 100 ML IV SCH ×2 (09:06→21:34)
[2020-07-04] MEDS: AMLODIPINE 5MG TABLET PO SCH ×2 (09:08→17:00)
[2020-07-04] MEDS: METOPROLOL TARTRATE 100MG TABLET PO SCH ×2 (09:08→20:40)
[2020-07-04] MEDS: LOSARTAN POTASSIUM 100 MG TABLET PO SCH (09:08)
[2020-07-04 09:13] LABS: CHLORIDE 104 mEq/L (98-107)
[2020-07-04 12:00] VITALS: BP 99/59
[2020-07-04] MEDS: DEXT 5%/0.45% NACL 1000ML 1,000 ML IV SCH ×2 (15:53→22:25)
[2020-07-04 16:00] VITALS: BP 109/42
[2020-07-04 20:00] VITALS: BP 120/50
[2020-07-05] VITALS (7 sets, daily range): BP systolic 103–170; BP diastolic 52–90
[2020-07-05] MEDS: METOCLOPRAMIDE HCL 10MG/2ML VIAL IV SCH ×2 (00:53→05:47)
[2020-07-05] MEDS: PIPERACILLIN/TAZOBACTAM 2.25 G in DEXTROSE 5% WATER 50 ML IV SCH (02:52)
[2020-07-05] MEDS: IPRATROPIUM/ALBUTEROL 0.5-3(2.5)MG/3ML NEB HHN SCH ×4 (03:50→21:14)
[2020-07-05] MEDS: HYDRALAZINE HCL 100MG TABLET PO SCH ×3 (05:40→22:00)
[2020-07-05] MEDS: NITROGLYCERIN OINT 1GM/INCH UDPKT TD SCH ×2 (05:42→15:00)
[2020-07-05] MEDS: BLOOD SUGAR DIAGNOSTIC STRIP TEST SCH ×4 (06:49→21:13)
[2020-07-05] MEDS: INSULIN LISPRO 100 UNITS/ML SUBCUT SCH ×4 (06:50→21:00)
[2020-07-05] MEDS: ACETYLCYSTEINE 100MG/ML 10% VIAL 4ML INH SCH (07:18)
[2020-07-05] MEDS: LOSARTAN POTASSIUM 100 MG TABLET PO SCH (09:00)
[2020-07-05] MEDS: AMLODIPINE 5MG TABLET PO SCH (09:00)
[2020-07-05] MEDS: METOPROLOL TARTRATE 100MG TABLET PO SCH ×2 (09:00→21:20)
[2020-07-05] MEDS: LEVETIRACETAM 500MG PREMIX 100 ML IV SCH ×2 (09:12→20:57)
[2020-07-05] MEDS: PANTOPRAZOLE SODIUM 40 MG/VIAL IV SCH ×2 (09:12→20:58)
[2020-07-06] MEDS: NITROGLYCERIN OINT 1GM/INCH UDPKT TD SCH ×4 (00:36→22:19)
[2020-07-06] MEDS: IPRATROPIUM/ALBUTEROL 0.5-3(2.5)MG/3ML NEB HHN SCH ×4 (02:56→21:39)
[2020-07-06 04:00] VITALS: BP 130/61
[2020-07-06] MEDS: HYDRALAZINE HCL 100MG TABLET PO SCH ×3 (06:46→22:18)
[2020-07-06] MEDS: BLOOD SUGAR DIAGNOSTIC STRIP TEST SCH ×4 (06:46→21:00)
[2020-07-06] MEDS: INSULIN LISPRO 100 UNITS/ML SUBCUT SCH ×4 (06:47→21:00)
[2020-07-06 08:00] VITALS: BP 132/77
[2020-07-06] MEDS: PANTOPRAZOLE SODIUM 40 MG/VIAL IV SCH ×2 (10:29→22:17)
[2020-07-06] MEDS: LEVETIRACETAM 500MG PREMIX 100 ML IV SCH ×2 (10:29→22:19)
[2020-07-06] MEDS: LOSARTAN POTASSIUM 100 MG TABLET PO SCH (10:30)
[2020-07-06] MEDS: METOPROLOL TARTRATE 100MG TABLET PO SCH ×2 (10:30→22:18)
[2020-07-06] MEDS: AMLODIPINE 5MG TABLET PO SCH (10:30)
[2020-07-06 12:00] VITALS: BP 140/65
[2020-07-06 16:00] VITALS: BP 110/50
[2020-07-06 20:00] VITALS: BP 116/58
[2020-07-07] VITALS: BP 150/86
[2020-07-07] MEDS: IPRATROPIUM/ALBUTEROL 0.5-3(2.5)MG/3ML NEB HHN SCH ×2 (01:55→10:12)
[2020-07-07 04:00] VITALS: BP 129/58
[2020-07-07] MEDS: HYDRALAZINE HCL 100MG TABLET PO SCH ×3 (06:15→21:58)
[2020-07-07] MEDS: INSULIN LISPRO 100 UNITS/ML SUBCUT SCH ×4 (06:15→21:00)
[2020-07-07] MEDS: NITROGLYCERIN OINT 1GM/INCH UDPKT TD SCH ×3 (06:15→21:58)
[2020-07-07] MEDS: BLOOD SUGAR DIAGNOSTIC STRIP TEST SCH ×4 (06:15→21:56)
[2020-07-07 08:00] VITALS: BP 129/65
[2020-07-07] MEDS: AMLODIPINE 5MG TABLET PO SCH (09:03)
[2020-07-07] MEDS: LOSARTAN POTASSIUM 100 MG TABLET PO SCH (09:04)
[2020-07-07] MEDS: PANTOPRAZOLE SODIUM 40 MG/VIAL IV SCH ×2 (09:04→21:55)
[2020-07-07] MEDS: METOPROLOL TARTRATE 100MG TABLET PO SCH ×2 (09:04→21:00)
[2020-07-07] MEDS: LEVETIRACETAM 500MG PREMIX 100 ML IV SCH ×2 (09:05→21:55)
[2020-07-07 12:00] VITALS: BP 110/65
[2020-07-07] MEDS ORDERED: IPRATROPIUM/ALBUTEROL 0.5-3(2.5)MG/3ML NEB HHN PRN (15:15)
[2020-07-07 16:00] VITALS: BP 137/64
[2020-07-07 20:00] VITALS: BP 108/83
[2020-07-08] VITALS: BP 154/83
[2020-07-08 04:00] VITALS: BP_SYST 132; BP_SYST 154; BP_DIAS 61; BP_DIAS 83
[2020-07-08] MEDS: NITROGLYCERIN OINT 1GM/INCH UDPKT TD SCH ×2 (05:05→13:41)
[2020-07-08] MEDS: HYDRALAZINE HCL 100MG TABLET PO SCH ×2 (05:12→13:41)
[2020-07-08] MEDS: INSULIN LISPRO 100 UNITS/ML SUBCUT SCH ×2 (07:40→12:40)
[2020-07-08] MEDS: BLOOD SUGAR DIAGNOSTIC STRIP TEST SCH ×2 (07:48→12:51)
[2020-07-08 08:00] VITALS: BP 112/87
[2020-07-08] MEDS: LEVETIRACETAM 500MG PREMIX 100 ML IV SCH (09:48)
[2020-07-08] MEDS: LOSARTAN POTASSIUM 100 MG TABLET PO SCH (09:49)
[2020-07-08] MEDS: METOPROLOL TARTRATE 100MG TABLET PO SCH (09:50)
[2020-07-08] MEDS: PANTOPRAZOLE SODIUM 40 MG/VIAL IV SCH (09:50)
[2020-07-08] MEDS: AMLODIPINE 5MG TABLET PO SCH (10:16)
[2020-07-08 12:00] VITALS: BP 110/46
[2020-07-08 15:19] VITALS: BP 110/46
[2020-07-08 16:00] VITALS: BP 109/39
== END 2020-07-08 17:15 | disposition hospice, home (50) | DRG 25 ==
LOC: ER 10:49 → MICUSO 15:00 → SUPCPDRO 18:47 → ENRESERV 23:35 → 5EST 06-29 20:45 → 8WST 07-03 18:40
PROVIDERS: ADMIT Internal Medicine; ATTEND Internal Medicine
PROC: 00C40ZZ Extirpation of Matter from Intracranial Subdural Space, Open Approach (ICD-10-PCS; principal; 2020-06-21)
PROC: 00U207Z Supplement Dura Mater with Autologous Tissue Substitute, Open Approach (ICD-10-PCS; 2020-06-21)
PROC: 5A1955Z Respiratory Ventilation, Greater than 96 Consecutive Hours (ICD-10-PCS; 2020-06-21)
PROC: 00H002Z Insertion of Monitoring Device into Brain, Open Approach (ICD-10-PCS; 2020-06-21)
PROC: 0BH18EZ Insertion of Endotracheal Airway into Trachea, Via Natural or Artificial Opening Endoscopic (ICD-10-PCS; 2020-06-21)
PROC: 02HV33Z Insertion of Infusion Device into Superior Vena Cava, Percutaneous Approach (ICD-10-PCS; 2020-06-21)
PROC: B548ZZA Ultrasonography of Superior Vena Cava, Guidance (ICD-10-PCS; 2020-06-21)
PROC: 00C40ZZ Extirpation of Matter from Intracranial Subdural Space, Open Approach (ICD-10-PCS; 2020-06-23)
PROC: 00U207Z Supplement Dura Mater with Autologous Tissue Substitute, Open Approach (ICD-10-PCS; 2020-06-23)
PROC: 00H002Z Insertion of Monitoring Device into Brain, Open Approach (ICD-10-PCS; 2020-06-23)
PROC: 0DH68UZ Insertion of Feeding Device into Stomach, Via Natural or Artificial Opening Endoscopic (ICD-10-PCS; 2020-07-03)
DX: I62.02 Nontraumatic subacute subdural hemorrhage (principal); J96.00 Acute respiratory failure, unspecified whether with hypoxia or hypercapnia; J69.0 Pneumonitis due to inhalation of food and vomit; G93.40 Encephalopathy, unspecified; N39.0 Urinary tract infection, site not specified; E87.0 Hyperosmolality and hypernatremia; N17.9 Acute kidney failure, unspecified; E46 Unspecified protein-calorie malnutrition; F03.90 Unspecified dementia, unspecified severity, without behavioral disturbance, psychotic disturbance, mood disturbance, and anxiety; E87.6 Hypokalemia; I10 Essential (primary) hypertension; D53.9 Nutritional anemia, unspecified; G93.89 Other specified disorders of brain; K29.70 Gastritis, unspecified, without bleeding; K44.9 Diaphragmatic hernia without obstruction or gangrene; G90.8 Other disorders of autonomic nervous system; E87.8 Other disorders of electrolyte and fluid balance, not elsewhere classified; Z51.5 Encounter for palliative care; Z20.828 Contact with and (suspected) exposure to other viral communicable diseases; R77.8 Other specified abnormalities of plasma proteins; R13.12 Dysphagia, oropharyngeal phase; Z78.1 Physical restraint status; Z85.3 Personal history of malignant neoplasm of breast; Z86.73 Personal history of transient ischemic attack (TIA), and cerebral infarction without residual deficits; Z93.1 Gastrostomy status; Z68.21 Body mass index [BMI] 21.0-21.9, adult; Z79.899 Other long term (current) drug therapy
CPT/HCPCS: 36415; 36600; 70551; 71045; 72141; 72146; 72170; 76937; 80048; 80053; 80305; 80320; 81003; 82375; 82533; 82550; 82553; 82805; 82962; 83036; 83735; 84132; 84439; 84443; 84484; 85025; 85027; 86850; 86900; 87070; 87075; 87426; 88108; 88304; 88311; 88312; 92610; 93005; 93970; 94002; 94003; 94640; 99285; A6261; C1713; C1725; C9113; J0330; J0690; J0696; J1100; J1815; J1953; J2060; J2250; J2270; J2370; J2405; J2543; J2704; J2710; J2765; J2930; J3010; J3475; J3480; J3490; J7040; J7050; J7060; J7070; J7120; J7121; J7608; A4315; G0480